=== PATIENT | male | born 1950 | race Caucasian/White ===

== ENCOUNTER 2020-05-01 11:11 | Inpatient (IN) | payer MEDICARE, OTHER ==
[~2020-05-01] VITALS: Ht 177.8 cm; Wt 93.0 kg
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
--- NOTE | 2020-05-01 11:39 | NUR ---
DR. REYNOSO AT BEDSIDE FOR EVAL.
--- NOTE | 2020-05-01 13:10 | NUR ---
Iv line established, blood drawn and given to lab. Patient a/ox4, no distress noted.
[2020-05-01 13:19] LABS: BASOPHILS # (AUTO) 0.1 /CMM (0.0-0.2); BASOPHILS % (AUTO) 0.5 % (0.0-2.0); EOSINOPHILS % (AUTO) 0.2 % (0.0-6.0); HEMATOCRIT 32 % (39-51); HEMOGLOBIN 10.5 g/dL (13.5-17.5); LYMPHOCYTES % (AUTO) 8.5 % (20.0-44.0); MEAN CORPUSCULAR HGB CONC 33 g/dl (31.0-36.0); MEAN CORPUSCULAR VOLUME 98 fL (80-96); MONOCYTES # (AUTO) 1.1 /CMM (0.1-1.30); MONOCYTES % (AUTO) 9.6 % (2.0-12.0); NEUTROPHILS # (AUTO) 9.6 /CMM (1.8-8.9); NEUTROPHILS % (AUTO) 81.2 % (43.0-81.0); PLATELET COUNT (AUTO) 245 /CMM (150-450); RED BLOOD CELL COUNT(AUTO) 3.28 MIL/uL (4.5-6.0); WHITE BLOOD COUNT (AUTO) 11.8 K/uL (4.3-11.0)
[2020-05-01 13:28] LABS: CALCIUM, SERUM 8.3 mg/dL (8.5-10.1); CREATININE 1.2 mg/dL (0.6-1.3); POTASSIUM 4.3 mmol/L (3.5-5.1)
[2020-05-01 13:34] LABS: ALBUMIN 1.7 g/dL (3.4-5.0); BILIRUBIN,DIRECT 0.4 mg/dL (0.0-0.2); BILIRUBIN,TOTAL 0.8 mg/dL (0.2-1.0); TOTAL PROTEIN, SERUM 5.5 g/dL (6.4-8.2)
--- NOTE | 2020-05-01 14:35 | NUR ---
LAB CALLED COVID-19 NEG. (-)
--- NOTE | 2020-05-01 14:57 | NUR ---
CALLED [facility], PAGED ALINE GROSS
--- NOTE | 2020-05-01 14:58 | NUR ---
ATTEMPTED TO GIVE REPORT TO RN IN MED-SURG, RN IS ON BREAK, WILL CALL BACK.
--- NOTE | 2020-05-01 15:10 | NUR ---
MIDWIFE PRACTITIONER ADMISSION NOTES RECEIVED PATIENT FROM ER DEPT ALERT AND ORIENTED X 4 WITH ONE ATTENDEE VIA GURNEY. NOT IN ANY ACUTE DISTRESS. RESPIRATION IS EVEN AND EASY WITH NO SOB. SL IV #18 TO RIGHT AC INTACT AND FLUSHING WELL. ATTEMPTED TO APPLY CARDIAC MANAGER FUND BUT DECLINED DESPITE OF INFORMING RISKS AND BENEFITS. PT STATED I DO NOT HAVE HEART PROBLEMS, I DO NOT NEED THAT. SUPERFICIAL SKIN TEAR NOTED TO LEFT SIDE OF CHEST AND LEFT INNER ANKLE. PT DECLINED TO TAKE PANTS OFF FOR COMPLETE BODY ASSESSMENT. BED KEPT AT LOWEST POSITION, SAFETY PRECAUTION OBSERVED. CALL LIGHT LEFT WITHIN REACH. WILL CONTINUE TO MONITOR.
--- NOTE | 2020-05-01 16:03 | NUR ---
REPORT GIVEN TO DENISE LEONARD FOR SUKH.
--- NOTE | 2020-05-01 16:04 | NUR ---
RECEIVED REPORT FROM LETICIA IN ED DEPT.
--- NOTE | 2020-05-01 16:32 | NUR ---
PATIENT TRANSFERRED TO ROOM 209-1 VIA ACLS PROTOCOL. NO DISTRESS NOTED. ENDORSED TO DENISE LEONARD.
[2020-05-01] MEDS ORDERED: ONDANSETRON HCL/PF 4 MG/2 ML VIAL IVP PRN (18:00)
[2020-05-01] MEDS ORDERED: ZOLPIDEM TARTRATE 5 MG TABLET PO PRN (18:00)
[2020-05-01] MEDS ORDERED: ACETAMINOPHEN 325 MG TABLET PO PRN (18:00)
[2020-05-01] MEDS ORDERED: Z GUARD REMEDY 2 OZ OINT TP PRN (18:00)
[2020-05-01 18:03] VITALS: BP 115/70
[2020-05-01] MEDS: IV NS 0.9% 1,000 ML IV PRN (18:22)
--- NOTE | 2020-05-01 18:51 | NUR ---
PT REMAINS ALERT AND ORIENTED X 4. NOT IN ANY ACUTE DISTRESS. RESPIRATION IS EVEN AND EASY WITH NO SOB. SL IV #18 TO RIGHT AC INTACT AND FLUSHING WELL. 2ND ATTEMPT TO APPLY CARDIAC AUDIOPROSTHOLOGIST BUT DECLINED DESPITE OF INFORMING RISKS AND BENEFITS. PT STATED I DO NOT HAVE HEART PROBLEMS, PT STILL DECLINED TO TAKE PANTS OFF FOR COMPLETE BODY ASSESSMENT. BED KEPT AT LOWEST POSITION, SAFETY PRECAUTION OBSERVED. CALL LIGHT LEFT WITHIN REACH. WILL ENDORSE TO NEXT SHIFT FOR SUKH.
--- NOTE | 2020-05-01 19:41 | NUR ---
MODERN AND CONTEMPORARY ART CURATOR OPENING NOTES PATIENT AWAKE IN BED. A/OX3-4. STABLE ON RA; NO S/S OF ACUTE RESPIRATORY DISTRESS; BREATHING IS EVEN AND UNLABORED. PATIENT DENIES PAIN AT THIS TIME. PATIENT REFUSING TO WEAR TELE MONITOR. IV PRESENT ON RIGHT AC, SIZE 18, INTACT & PATENT, HEP LOCKED. CONTACT/DROPLET PRECAUTIONS IN PLACE FOR R/O COVID; AWAITING RESULTS. SAFETY MEASURES IN PLACE AND PATIENT'S NEEDS MET. BED LOCKED, ALARM ON, SIDE RAILS X2, CALL LIGHT WITHIN REACH. WILL CONTINUE TO MONITOR.
[2020-05-01 20:00] VITALS: BP 101/60
[2020-05-01 20:26] LABS: FREE PSA 98.72 ng/mL (0.00-45); PROSTATE SPECIFIC ANTIGEN SCR 5609.63 ng/mL (0.00-4.00)
[2020-05-01 20:27] VITALS: BP 101/60
[2020-05-01] MEDS: ENOXAPARIN SODIUM 40 MG/0.4 ML DISP.SYRIN SQ SCH (20:59)
[2020-05-02] VITALS (7 sets, daily range): BP systolic 104–128; BP diastolic 50–80
--- NOTE | 2020-05-02 07:39 | NUR ---
PRIMARY PRODUCTS INSPECTORS CLOSING NOTES PATIENT SLEEPING, EASY TO AWAKEN. A/OX3-4. STABLE ON RA; NO S/S OF ACUTE RESPIRATORY DISTRESS; BREATHING IS EVEN AND UNLABORED. NO S/S OF PAIN NOTED. PATIENT STILL REFUSING TO WEAR TELE MONITOR. IV PRESENT ON RIGHT AC, SIZE 18, INTACT & PATENT WITH NS RUNNING AT 75 ML/HR. CONTACT/DROPLET PRECAUTIONS IN PLACE FOR R/O COVID; AWAITING RESULTS. SAFETY MEASURES IN PLACE AND PATIENT'S NEEDS MET. BED LOCKED, ALARM ON, SIDE RAILS X2, CALL LIGHT WITHIN REACH. ENDORSED TO DAY SHIFT RN PLAN OF CARE.
[2020-05-02 07:55] LABS: BASOPHILS # (AUTO) 0.1 /CMM (0.0-0.2); BASOPHILS % (AUTO) 0.5 % (0.0-2.0); EOSINOPHILS % (AUTO) 0.3 % (0.0-6.0); HEMATOCRIT 29 % (39-51); HEMOGLOBIN 9.5 g/dL (13.5-17.5); LYMPHOCYTES # (AUTO) 1.1 /CMM (0.8-4.8); LYMPHOCYTES % (AUTO) 10.2 % (20.0-44.0); MEAN CORPUSCULAR HGB CONC 33 g/dl (31.0-36.0); MEAN CORPUSCULAR VOLUME 98 fL (80-96); MONOCYTES # (AUTO) 0.9 /CMM (0.1-1.30); MONOCYTES % (AUTO) 8.6 % (2.0-12.0); NEUTROPHILS # (AUTO) 8.4 /CMM (1.8-8.9); NEUTROPHILS % (AUTO) 80.4 % (43.0-81.0); PLATELET COUNT (AUTO) 244 /CMM (150-450); RED BLOOD CELL COUNT(AUTO) 2.93 MIL/uL (4.5-6.0); WHITE BLOOD COUNT (AUTO) 10.4 K/uL (4.3-11.0)
[2020-05-02 08:52] LABS: THYROID STIMULATING HORMONE 13.052 uIU/mL (0.358-3.74)
[2020-05-02 08:55] LABS: ALBUMIN 1.6 g/dL (3.4-5.0); BILIRUBIN,TOTAL 0.5 mg/dL (0.2-1.0); CALCIUM, SERUM 8.1 mg/dL (8.5-10.1); MAGNESIUM 2.3 mg/dL (1.8-2.4); PHOSPHORUS 2.9 mg/dL (2.5-4.9); POTASSIUM 4.1 mmol/L (3.5-5.1); TOTAL PROTEIN, SERUM 5.3 g/dL (6.4-8.2)
[2020-05-02] MEDS: MORPHINE SULFATE INJ 4 MG/ML DISP.SYRIN IV PRN ×2 (14:00→21:27)
--- NOTE | 2020-05-02 14:41 | NUR ---
This SW attempted to speak with the patient using patient's room phone. 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 This SW attempted to call nursing station to ensure the patient's phone is within reach, no answer from nursing station. SW to try again. SW remains available for all needs regarding the patient.
--- NOTE | 2020-05-02 18:26 | NUR ---
RN CLOSING NOTES PATIENT IS IN BED AWAKE,. A/OX3-4. STABLE ON RA; NO S/S OF ACUTE RESPIRATORY DISTRESS; BREATHING IS EVEN AND UNLABORED. NO S/S OF PAIN NOTED. IV PRESENT ON RIGHT AC, SIZE 18, INTACT & PATENT WITH NS RUNNING AT 75 ML/HR. CONTACT/DROPLET PRECAUTIONS IN PLACE FOR R/O COVID; AWAITING RESULTS. SAFETY MEASURES IN PLACE AND PATIENT'S NEEDS MET. BED LOCKED, ALARM ON, SIDE RAILS X2, CALL LIGHT WITHIN REACH. ENDORSED TO PM SHIFT RN FOR CONTINUITY OF CARE
--- NOTE | 2020-05-02 19:00 | NUR ---
MS/RN OPENING NOTES: PATIENT IS IN BED, AWAKE, A/OX3-4. STABLE ON RA; NO S/S OF ACUTE RESPIRATORY DISTRESS; BREATHING IS EVEN AND UNLABORED. COMPLAINS OF MODERATE PAIN AT THIS TIME. IV PRESENT ON RIGHT AC, SIZE 18, INTACT & PATENT WITH NS RUNNING AT 75 ML/HR. CONTACT/DROPLET PRECAUTIONS FOLLOWED FOR R/O COVID; RESULTS ARE STILL PENDING. SAFETY MEASURES IN PLACE AND PATIENT'S NEEDS MET. BED LOCKED, ALARM ON, SIDE RAILS X2, CALL LIGHT WITHIN REACH. WILL CONTINUE TO MONITOR ACCORDINGLY.
[2020-05-02] MEDS: IV NS 0.9% 1,000 ML IV PRN (20:29)
[2020-05-02] MEDS: ENOXAPARIN SODIUM 40 MG/0.4 ML DISP.SYRIN SQ SCH (20:32)
--- NOTE | 2020-05-02 21:10 | NUR ---
MS/RN NOTES: DR. AKBAR CALLED TO SPEAK WITH THE PATIENT REGARDING THE CT CHEST AND ABDOMEN AND PELVIS RESULTS. PATIENT STARTED TO GET UPSET AND DOESN'T WANT TO LISTEN TO DR. AKBAR AND REFUSE TO HEAR FURTHER RESULTS STATING "I DON'T CARE. I'M 69!". WILL CONTINUE TO MONITOR.
--- NOTE | 2020-05-02 21:27 | NUR ---
MS/RN NOTES: PT. COMPLAINS OF PAIN 8-10. REQUESTING FOR MORPHINE. VS STABLE AND WNL. ADMINISTERED MORPHINE 4MG IVP PRN FOR PAIN. WILL CONTINUE TO MONITOR ACCORDINGLY.
--- NOTE | 2020-05-03 07:20 | NUR ---
RN OPENING NOTES RECEIVED PATIENT IN BED RESTING. A/OX3, ABLE TO MAKE NEEDS KNOWN. NOT IN ANY FORM OF DISTRESS. NO SOB. IV ACCESS INTACT AND PATENT. KEPT PATIENT SAFE AND COMFORTABLE. BED IN LOW/LOCKED POSITION. SIDERAILS UPX2,CALL LIGHT IN REACH. WILL CONT TO MONIOTR ACCORDINGLY
--- NOTE | 2020-05-03 07:31 | NUR ---
MS/RN CLOSING NOTES: PATIENT REMAINS IN BED, AWAKE, A/OX3-4. STABLE ON RA; NO S/S OF ACUTE RESPIRATORY DISTRESS; BREATHING IS EVEN AND UNLABORED. NO C/O PAIN AT THIS TIME. IV ON RIGHT AC, SIZE 18, INTACT & PATENT WITH NS RUNNING AT 75 ML/HR. CONTACT/DROPLET PRECAUTIONS FOLLOWED FOR R/O COVID THROUGHOUT THE SHIFT; RESULTS STILL PENDING. SAFETY MEASURES IN PLACE AND PATIENT'S NEEDS MET. BED LOCKED, ALARM ON, SIDE RAILS X2, CALL LIGHT WITHIN REACH. ALL MEDS GIVEN. ALL NURSING NEEDS META ND RENDERED, ENDORSED TO DAY SHIFT FOR SUKH.
[2020-05-03 07:37] LABS: BASOPHILS % (AUTO) 0.3 % (0.0-2.0); EOSINOPHILS % (AUTO) 0.3 % (0.0-6.0); HEMATOCRIT 31 % (39-51); LYMPHOCYTES # (AUTO) 1.2 /CMM (0.8-4.8); LYMPHOCYTES % (AUTO) 10.7 % (20.0-44.0); MEAN CORPUSCULAR HGB CONC 32 g/dl (31.0-36.0); MEAN CORPUSCULAR VOLUME 99 fL (80-96); MONOCYTES # (AUTO) 1.1 /CMM (0.1-1.30); MONOCYTES % (AUTO) 9.4 % (2.0-12.0); NEUTROPHILS # (AUTO) 8.9 /CMM (1.8-8.9); NEUTROPHILS % (AUTO) 79.3 % (43.0-81.0); PLATELET COUNT (AUTO) 235 /CMM (150-450); RED BLOOD CELL COUNT(AUTO) 3.16 MIL/uL (4.5-6.0); WHITE BLOOD COUNT (AUTO) 11.2 K/uL (4.3-11.0)
[2020-05-03 07:51] LABS: CALCIUM, SERUM 8.1 mg/dL (8.5-10.1); MAGNESIUM 2.2 mg/dL (1.8-2.4); PHOSPHORUS 2.6 mg/dL (2.5-4.9); POTASSIUM 4.5 mmol/L (3.5-5.1)
[2020-05-03 08:00] VITALS: BP 107/72
[2020-05-03] MEDS: BICALUTAMIDE 50 MG TABLET PO SCH (09:05)
[2020-05-03] MEDS: MORPHINE SULFATE INJ 4 MG/ML DISP.SYRIN IV PRN ×3 (09:06→22:17)
[2020-05-03] MEDS ORDERED: IOHEXOL-300 100 ML VIAL IV ONE (10:14)
[2020-05-03] MEDS ORDERED: IV NS 0.9% 250 ML IV ONE (10:15)
--- NOTE | 2020-05-03 10:58 | NUR ---
Patient is refusing assessment from this SW. SW attempted to meet with the patient at bedside; however, patient is COVID positive. SW cannot meet with the patient at bedside. This SW confirmed this with Rental Coordinator Yesi DUKEW, DSW, BCD. This SW to attempt telephone assessment at a later time after patient is notified that this SW cannot physically meet at bedside per COVID. Patient cannot be placed in [facility] per COVID status. PLAN: SW to inform Case Management about [facility] placement. Patient not a candidate for GPS per COVID status.
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
[2020-05-03 15:06] LABS: *SPE A/G RATIO 0.7 (0.7-1.7); *SPE ALPHA-1-GLOBULIN 0.4 g/dL (0.0-0.4); *SPE ALPHA-2-GLOBULIN 0.6 g/dL (0.4-1.0); *SPE BETA GLOBULIN 0.7 g/dL (0.7-1.3); *SPE GLOBULIN, TOTAL 2.9 g/dL (2.2-3.9); *SPE M-SPIKE 0.5 g/dL (Not Observed); *SPEGAMMA GLOBULIN 1.1 g/dL (0.4-1.8)
--- NOTE | 2020-05-03 15:14 | NUR ---
transferred patient to room 313-1. patient stable condition. all belongings sent with patient. endorsed to HROACIO Tariq for continuity of care.
--- NOTE | 2020-05-03 15:15 | NUR ---
TRANSFER PATIENT RECEIVED TRANSFER VIA GURNEY. PATIENT IS ALERT A/O X 3-4 WITH NO SIGNS OF DISTRESS IN ROOM AIR. IV R AC #18G INTACT. PATIENT WAS ORIENTED TO HIS ROOM. SAFETY MEASURES ARE APPLIED BED IS LOCK AND LOW POSITION, SIDE RAILS UP X 2 FOR SAFETY. CALL LIGHT WITHIN REACH WILL CONTINUE TO MONITOR.
[2020-05-03 16:00] VITALS: BP 115/82
[2020-05-03] MEDS: IV NS 0.9% 1,000 ML IV PRN (18:50)
--- NOTE | 2020-05-03 19:52 | NUR ---
MS RN CLOSING NOTES PATIENT IS ALERT A/O X 3-4 WITH NO SIGNS OF DISTRESS IN ROOM AIR. IV R AC #18G INTACT. PATIENT REMAINED STABLE THROUGH OUT SHIFT. PATIENT KEPT CLEAN AND DRY. ALL NEEDS, CARE, TREATMENT AND MEDICATIONS ADMINISTERED ANTICIPATED PER ORDER. SAFETY MEASURES ARE APPLIED BED IS LOCK AND LOW POSITION, SIDE RAILS UP X 2 FOR SAFETY. CALL LIGHT WITHIN REACH. WILL ENDORSE TO THE NEXT BOX STRAPPER.
[2020-05-03 20:00] VITALS: BP 115/78
--- NOTE | 2020-05-03 20:00 | NUR ---
ms [place] initial notes received report from am nurse and seen pt in bed awake and alert not in any discomfort. noticed Edema on both bilateral foot . no sob noted even patient have distended abdomen . pt stated he's been like that for a long. time. kept him comfortable at all times. will continue monitoring. place call light at reach.
[2020-05-03] MEDS: ENOXAPARIN SODIUM 40 MG/0.4 ML DISP.SYRIN SQ SCH (21:04)
--- NOTE | 2020-05-03 22:17 | NUR ---
ms [place] notes. pain mgt c/o shoulder and back pain. Morphine IVP given by another nurse as ordered. Pt aware of side effect . will continue monitoring. Snacks served as well for pt comfort.
--- NOTE | 2020-05-04 | NUR ---
ms analytics director notes pt sleeping comfortably in bed without any distress noted. respiration even and non-labored. kept him comfortably in bed place call light at reach.
[2020-05-04 06:28] LABS: BASOPHILS # (AUTO) 0.1 /CMM (0.0-0.2); BASOPHILS % (AUTO) 0.8 % (0.0-2.0); EOSINOPHILS % (AUTO) 0.4 % (0.0-6.0); HEMATOCRIT 31 % (39-51); HEMOGLOBIN 9.9 g/dL (13.5-17.5); LYMPHOCYTES # (AUTO) 1.1 /CMM (0.8-4.8); LYMPHOCYTES % (AUTO) 10.1 % (20.0-44.0); MEAN CORPUSCULAR HGB CONC 32 g/dl (31.0-36.0); MEAN CORPUSCULAR VOLUME 100 fL (80-96); MONOCYTES # (AUTO) 1.2 /CMM (0.1-1.30); MONOCYTES % (AUTO) 10.5 % (2.0-12.0); NEUTROPHILS # (AUTO) 8.7 /CMM (1.8-8.9); NEUTROPHILS % (AUTO) 78.2 % (43.0-81.0); PLATELET COUNT (AUTO) 203 /CMM (150-450); RED BLOOD CELL COUNT(AUTO) 3.07 MIL/uL (4.5-6.0); WHITE BLOOD COUNT (AUTO) 11.1 K/uL (4.3-11.0)
[2020-05-04 06:42] LABS: CREATININE 1.1 mg/dL (0.6-1.3); MAGNESIUM 2.3 mg/dL (1.8-2.4); PHOSPHORUS 3.1 mg/dL (2.5-4.9); POTASSIUM 4.9 mmol/L (3.5-5.1)
--- NOTE | 2020-05-04 06:53 | NUR ---
ms manager of care closing notes pt awake at this time watching TV , no signs of any distress noted. slept well after pain meds given. just noticed to the patient he's like talking to someone at the bedside but nobody around. no aggressive behavior noted. he request to disconnect his IV fluid at this time then just put it back after breakfast. morning care done with the helped of emi Flores. kept him warm and comfortable at all times. will endorse to am nurse for continuity of care. place call light at reach.
--- NOTE | 2020-05-04 07:20 | NUR ---
MS RN OPEN NOTES PATIENT IS ALERT A/O X 3-4 WITH NO SIGNS OF DISTRESS IN ROOM AIR. IV R AC #18G INTACT. SAFETY MEASURES ARE APPLIED. BED IN LOW AND LOCK POSITION SIDE RAILS UP X 2 FOR SAFETY. CALL LIGHT WITHIN REACH. WILL CONTINUE TO MONITOR.
[2020-05-04 08:00] VITALS: BP 109/71
[2020-05-04] MEDS: MORPHINE SULFATE INJ 4 MG/ML DISP.SYRIN IV PRN ×2 (10:00→19:46)
[2020-05-04] MEDS ORDERED: hydrOXYzine PAMOATE 25 MG CAPSULE PO PRN (11:00)
[2020-05-04] MEDS: BICALUTAMIDE 50 MG TABLET PO SCH (11:32)
[2020-05-04 16:00] VITALS: BP 111/69
--- NOTE | 2020-05-04 18:54 | NUR ---
MS RN CLOSING NOTES PATIENT IS ALERT A/O X 3-4 WITH NO SIGNS OF DISTRESS IN ROOM AIR. IV R AC #18G INTACT. NO COMPLAIN OF PAIN AT THIS MOMENT. PATIENT REMAINED STABLE THROUGH OUT SHIFT. PATIENT KEPT CLEAN AND DRY. ALL NEEDS, CARE, TREATMENT AND MEDICATIONS ADMINISTERED ANTICIPATED PER ORDER. SAFETY MEASURES ARE APPLIED BED IS LOCK AND LOW POSITION, SIDE RAILS UP X 2 FOR SAFETY. CALL LIGHT WITHIN REACH. WILL ENDORSE TO THE NEXT CASINO ENFORCEMENT AGENT.
[2020-05-04 20:00] VITALS: BP 102/73
--- NOTE | 2020-05-04 20:00 | NUR ---
RN NOTES PM SHIFT PATIENT SITTING ON EDGE OF BED, ALERT AND ORIENTED X3, ON ROOM AIR, COMPLAINING OF PAIN TO RIGHT SHOULDER, REQUESTING MORPHINE. NEEDS ATTENDED, KEPT SAFE, CALL LIGHT WITHIN REACH.
[2020-05-04] MEDS: ENOXAPARIN SODIUM 40 MG/0.4 ML DISP.SYRIN SQ SCH (20:22)
[2020-05-04 20:29] VITALS: BP 102/73
--- NOTE | 2020-05-05 06:09 | NUR ---
RN NOTES PM SHIFT ALERT AND ORIENTED X4, ROOM AIR, GIVEN MORPHINE FOR PAIN WITH ADEQUATE RELIEF, VS STABLE, NO ADVERSE CHANGE DURING SHIFT, ABDOMINAL DISTENTION, PER CT OF ABDOMEN AND PELVIS, LARGE VOLUME ASCITES, ONCOLOGY CONSULT WITH DR. AKBAR, AND OUTPATIENT PSYCH TREATMENT WHEN MEDICALLY CLEARED.
[2020-05-05 06:32] LABS: BASOPHILS # (AUTO) 0.1 /CMM (0.0-0.2); BASOPHILS % (AUTO) 0.7 % (0.0-2.0); EOSINOPHILS % (AUTO) 0.4 % (0.0-6.0); HEMATOCRIT 30 % (39-51); HEMOGLOBIN 9.4 g/dL (13.5-17.5); LYMPHOCYTES # (AUTO) 1.1 /CMM (0.8-4.8); LYMPHOCYTES % (AUTO) 9.7 % (20.0-44.0); MEAN CORPUSCULAR HGB CONC 32 g/dl (31.0-36.0); MEAN CORPUSCULAR VOLUME 100 fL (80-96); MONOCYTES # (AUTO) 1.2 /CMM (0.1-1.30); MONOCYTES % (AUTO) 10.2 % (2.0-12.0); NEUTROPHILS # (AUTO) 8.9 /CMM (1.8-8.9); PLATELET COUNT (AUTO) 190 /CMM (150-450); RED BLOOD CELL COUNT(AUTO) 2.96 MIL/uL (4.5-6.0); WHITE BLOOD COUNT (AUTO) 11.3 K/uL (4.3-11.0)
--- NOTE | 2020-05-05 07:02 | NUR ---
MS RN OPENING NOTE RECEIVED PT AWAKE AND SITTING BY SIDE OF THE BED AT THIS TIME. AOX3 WITH PERIODS OF CONFUSION. PT TALKS TO SELF. NO SOB NOTED, NO S/ S OF ANY ACUTE DISTRESS NOTED. NO C/O PAIN AT THIS TIME. PT ABLE TO MAKE NEEDS KNOWN. RESPIRATIONS ARE EVEN AND UNLABORED. IV ACCESS NOTED IN RAC G#18, PATENT, INTACT AND FLUSHING WELL. FALL AND SAFETY PRECAUTION IN PLACE AND MAINTAINED AT ALL TIMES. BED IN LOWEST LOCKED POSITION, HOB ELEVATED, SIDE RAILS UP X 2, CALL LIGHT WITHIN REACH. WILL CONTINUE TO MONITOR
[2020-05-05 07:15] LABS: MAGNESIUM 2.3 mg/dL (1.8-2.4); PHOSPHORUS 3.3 mg/dL (2.5-4.9); POTASSIUM 4.5 mmol/L (3.5-5.1)
[2020-05-05 08:00] VITALS: BP 107/57
[2020-05-05] MEDS: BICALUTAMIDE 50 MG TABLET PO SCH (08:51)
[2020-05-05] MEDS: MORPHINE SULFATE INJ 4 MG/ML DISP.SYRIN IV PRN (08:52)
--- NOTE | 2020-05-05 08:55 | NUR ---
PT C/O OF LEFT/RIGHT GENERALIZED ACHING,THROBBING PAIN 03/19. VS WNL. PER PT REQUEST, MORPHINE 4MG IV Q4HR PRN ADMINISTERED AT THIS TIME PER ORDER. WILL CONTINUE TO MONITOR
--- NOTE | 2020-05-05 15:00 | NUR ---
PT HGB 5.5. PT REFUSED BLOOD TRANSFUSION THROUGH IV/MIDLINE ASSESS. PT STATED "I CAN ONLY HAVE BLOOD TRANSFUSION WITH HD". DANYELL, CHARGE NURSE AND DOCTOR RENATO AWARE. NO NEW ORDERS AT THIS TIME. WILL CONTINUE TO MONITOR
[2020-05-05 16:00] VITALS: BP 102/66
--- NOTE | 2020-05-05 16:01 | NUR ---
PT SCHEDULED FOR CT GUIDED LIVER BIOPSY AND KAPPA/LANBDA LIGHT CHAIN ON Thursday05/07/[address] AKBAR. CONSENT FOR BLOOD, ANESTHESIA AND PROCEDURE SIGNED BY PATIENT AND FILED IN CHART. WILL CONTINUE WITH PLAN OF CARE
[2020-05-05] MEDS ORDERED: HYDR25CA26 PO (17:20)
[2020-05-05] MEDS ORDERED: BICA50TA49 PO (17:20)
[2020-05-05] MEDS ORDERED: ASPI-1420 PO (17:20)
--- NOTE | 2020-05-05 19:04 | NUR ---
RN CLOSING NOTES PT AWAKE AND SITTING IN CHAIR AT THIS TIME. PT REMAINED STABLE THROUGHOUT SHIFT. ALL CARE, NEEDS, MEDICATIONS AND TREATMENT ADMINISTERED ANTICIPATED PER ORDER. PT PENDING DISCHARGE TO [facility]. REPORT CALLED IN TO CINDY SANTA @[facility]. DISCHARGE INSTRUCTIONS PROVIDED AND PT VERBALIZED UNDERSTANDING. BELONGINGS ACCOUNTED FOR, SIGNED BY PT AND FILED IN CHART.PICTURES TAKEN AND FILED IN CHART. PT WILL BE PICKED UP BY AMBULANCE AT 20:00PM PER CM. SAFETY PRECAUTION IN PLACE AND MAINTAINED AT ALL TIMES. BED IN LOWEST LOCKED POSITION, HOB ELEVATED, RAILS UP X 2, CALL LIGHT WITHIN REACH. WILL ENDORSE TO PLUCK TRIMMER NURSE FOR SUKH
--- NOTE | 2020-05-05 20:47 | NUR ---
RN NOTES PATIENT PICKED UP BY AMBULANCE TO GO TO [facility]. PATIENT ALERT AND ORIENTED, ROOM AIR, NO DISTRESS, IV REMOVED AND SECURED WITH TAPE, NO BLEEDING, ALL BELONGINGS GIVEN BACK TO PATIENT. COPY OF CHART GIVEN TO AMBULANCE WELL
== END 2020-05-05 20:07 | DRG 543 ==
LOC: ER 11:19 → TELE2 14:46 → MEDSG2 05-02 09:30 → MED 05-03 15:05
PROVIDERS: ADMIT Nurse Practitioner Acute Care; ATTEND Nurse Practitioner Acute Care
DX: C79.51 Secondary malignant neoplasm of bone (principal); E87.1 Hypo-osmolality and hyponatremia; E87.2 Acidosis; J90 Pleural effusion, not elsewhere classified; C61 Malignant neoplasm of prostate; M89.8X0 Other specified disorders of bone, multiple sites; E86.0 Dehydration; D53.9 Nutritional anemia, unspecified; V18.4XXA Pedal cycle driver injured in noncollision transport accident in traffic accident, initial encounter; Y92.89 Other specified places as the place of occurrence of the external cause; D72.829 Elevated white blood cell count, unspecified; Z59.0 Homelessness; R79.89 Other specified abnormal findings of blood chemistry; R74.0 Nonspecific elevation of levels of transaminase and lactic acid dehydrogenase [LDH]; F17.200 Nicotine dependence, unspecified, uncomplicated; F43.10 Post-traumatic stress disorder, unspecified; S29.9XXA Unspecified injury of thorax, initial encounter; F41.9 Anxiety disorder, unspecified
CPT/HCPCS: 36415; 70450-TC; 71045-TC; 71270-TC; 72170-TC; 73030-TC; 74178; 78306-TC; 80048-TC; 80053-TC; 80061-TC; 80076-TC; 82378; 82728-TC; 83540-TC; 83690-TC; 83735-TC; 84100-TC; 84153-TC; 84154-TC; 84155; 84165; 84403; 84439-TC; 84443-TC; 84484-TC; 85025-TC; 85652-TC; 85730-TC; 86301; 87081-TC; 93307-TC; A9503; C9803-CS; G0378; J1650; J2270; J7030; J7050; Q0177; Q9967; U0003-CS